=== PATIENT | male | born 1935 | race Caucasian/White ===

== ENCOUNTER → 2016-09-05 | Outpatient (CLI) | payer MEDICARE, OTHER | END | disposition home or self-care (01) | LOC: GMAL 10:08 | PROVIDERS: ATTEND Family Medicine | DX: Z12.5 Encounter for screening for malignant neoplasm of prostate (principal); D51.3 Other dietary vitamin B12 deficiency anemia | CPT/HCPCS: 82607; G0103 ==

== ENCOUNTER → 2016-09-21 | Outpatient (CLI) | payer MEDICARE, OTHER ==
--- NOTE | 2016-09-21 11:45 | US ---
EXAM DESCRIPTION: Carotid Duplex CLINICAL HISTORY: I65.22, I65.23 COMPARISON: None Available. TECHNIQUE: Carotid Doppler ultrasound was performed. Grayscale, color Doppler and spectral Doppler images were saved to the patient's medical record. Stenosis was calculated indirectly based on peak systolic velocity, end-diastolic velocity and ICA/CCA ratios. FINDINGS: There is minimal atherosclerotic calcified plaque within the right carotid bulb. No additional plaque noted. The right common carotid artery peak systolic velocity is 70 cm/s, the left is 85. The right internal carotid artery peak systolic velocity is 51 cm/s, the left is 55. No abnormal ratio. Bilateral vertebral arteries demonstrate antegrade flow. IMPRESSION: Today's exam demonstrates minimal atherosclerotic plaque within the right carotid bulb. There is no evidence of significant narrowing within either carotid systems. Electronically signed by: Bladimir Cisse MD 09/21/2016 11:45 AM CDT
== END | disposition home or self-care (01) ==
LOC: US 09:23
PROVIDERS: ATTEND Family Medicine
DX: I65.22 Occlusion and stenosis of left carotid artery (principal)

== ENCOUNTER 2017-02-21 22:08 | Emergency (ER) | payer MEDICARE, OTHER ==
[2017-02-21 22:15] VITALS: O2SAT 94
--- NOTE | 2017-02-21 22:34 | ED.PDOC ---
History of Present Illness - General Chief Complaint: GI Problem Stated Complaint: vomiting Time Seen by Provider: 02/21/17 22:25 Source: patient Exam Limitations: no limitations - History of Present Illness Initial Comments: Patient presents complaining of N/V x 4 hours. He has vomited about every 20 minutes. The vomitus is watery. Denies blood, coffee ground emesis, or bile. Denies abdominal pain. Denies diarrhea. S/P cholecystectomy. No similarly sick contacts. No other complaints. Timing/Duration: 4-6 hours Severity: moderate Improving Factors: nothing Worsening Factors: nothing Associated Symptoms: denies symptoms Allergies/Adverse Reactions: Allergies NO KNOWN ALLERGY Allergy (Verified 07/04/12 14:15) Home Medications: Ambulatory Orders Aspirin [Aspirin 81] 81 mg PO DAILY 10/15/13 Calcium Carbonate-Vitamin D [Calcium 500 + D 500-125 mg-Unit] 1 tab PO DAILY Cyanocobalamin [Vitamin B-12] 1,000 mcg PO DAILY 10/15/13 Gemfibrozil 600 mg PO DAILY 10/15/13 Levothyroxine Sodium 50 mcg PO DAILY 10/15/13 Multiple Vitamins W/ Minerals [Multi For Him] 1 cap PO DAILY 10/15/13 Pantoprazole Sodium 40 mg PO DAILY 10/15/13 Tyyeymxjpylzg-Jofa-Mnmxyhdeng [Fioricet] 1 ea PO Q8H PRN #21 tab 04/10/16 Review of Systems - Review of Systems EENTM: States: no symptoms reported Respiratory: States: no symptoms reported Cardiology: States: no symptoms reported Gastrointestinal/Abdominal: States: see HPI Genitourinary: States: no symptoms reported Musculoskeletal: States: no symptoms reported Skin: States: no symptoms reported Neurological: States: no symptoms reported Endocrine: States: no symptoms reported Hematologic/Lymphatic: States: no symptoms reported Past Medical History (General) - Patient Medical History Hx Cardiac Disorders: No Hx Congestive Heart Failure: No Hx Diabetes: No Hx Gastroesophageal Reflux: Yes Hx MRSA: No Surgical History: cholecystectomy - Vaccination History Hx Influenza Vaccination: Yes Hx Pneumococcal Vaccination: Yes Family Medical History - Family History Father Family History: Unknown Physical Exam - Physical Exam General Appearance: Alert Respiratory: chest non-tender, lungs clear, normal breath sounds Cardiovascular/Chest: normal peripheral pulses, regular rate, rhythm, no edema Gastrointestinal/Abdominal: normal bowel sounds, non tender, soft Skin Exam: normal color Progress - Progress Progress: 02/21/17 23:47 Zofran 4 mg IV x one significantly reduced the nausea. One liter NS IV bolus x one. CT ab/pelvis showed diverticulosis and possible mild colitis. Patient discharged with zofran and orders to increase oral fluids. Departure - Departure Clinical Impression: Gastroenteritis Disposition: Discharge to Home or Self Care Condition: Good Departure Forms: ED Discharge - Pt. Copy, Patient Portal Self Enrollment Diet: resume usual diet, other Activity: increase activity as tolerated Referrals: Vance Lim III, MD [Primary Care Provider] - 1-2 Weeks Home Medications: Ambulatory Orders Aspirin [Aspirin 81] 81 mg PO DAILY 10/15/13 Calcium Carbonate-Vitamin D [Calcium 500 + D 500-125 mg-Unit] 1 tab PO DAILY Cyanocobalamin [Vitamin B-12] 1,000 mcg PO DAILY 10/15/13 Gemfibrozil 600 mg PO DAILY 10/15/13 Levothyroxine Sodium 50 mcg PO DAILY 10/15/13 Multiple Vitamins W/ Minerals [Multi For Him] 1 cap PO DAILY 10/15/13 Pantoprazole Sodium 40 mg PO DAILY 10/15/13 Bcfsihlfgcceg-Vqsx-Iflmmacufr [Fioricet] 1 ea PO Q8H PRN #21 tab 04/10/16 Additional Instructions: Increase oral fluids. Return to the E.R. if nausea and vomiting persists more than 48 hours without the development of diarrhea.
[2017-02-21] MEDS ORDERED: ONDANSETRON INJ 4 MG/2 ML VIAL IV ONE (22:35)
[2017-02-21] MEDS ORDERED: SODIUM CHLORIDE 0.9% 1000ML 1,000 ML IVS ONE (22:37)
--- NOTE | 2017-02-21 23:30 | CT ---
EXAM DESCRIPTION: Abdomen/Pelvis w/Contrast CLINICAL HISTORY: 82 years Male N/V COMPARISON: None. TECHNIQUE: Contiguous axial images obtained through the abdomen and pelvis following IV contrast. Reformatted images obtained. This exam was performed according to our department optimization program which includes automated exposure control, adjustment of the mA and/or kv according to patient size and/or use of iterative reconstruction technique. FINDINGS: The liver appears unremarkable. The spleen and pancreas appear unremarkable. No adrenal masses. Prominent extrarenal pelvis on the right. No evidence of hydronephrosis or obstructive uropathy. The gallbladder is surgically absent. Infrarenal abdominal aorta is mildly dilated measuring 2.9 cm. Recommend follow-up every five years. Bowel obstruction. There is diverticulosis. Small amount of wall thickening suggested in the descending and the sigmoid colon which May reflect evolving colitis. The appendix is unremarkable. No free fluid. Prominent prostate with probable TUR defect. IMPRESSION: Diverticulosis Wall thickening in the sigmoid and distal descending colon which may reflect mild colitis Absent gallbladder 2.9 cm abdominal aortic aneurysm. Recommend follow-up every five years Electronically signed by: Ellyn Braden 02/21/2017 11:29 PM CDT
[2017-02-21] MEDS ORDERED: ONDANSETRON ODT (ER DISP) 8 MG TAB PO ONE (23:50)
[2017-02-22 00:38] VITALS: BP 101/55; TEMP 98.9
== END 2017-02-22 00:38 | disposition home or self-care (01) ==
LOC: ER 22:08
DX: K52.9 Noninfective gastroenteritis and colitis, unspecified (principal); K21.9 Gastro-esophageal reflux disease without esophagitis; Z79.82 Long term (current) use of aspirin; Z79.899 Other long term (current) drug therapy
CPT/HCPCS: 36415; 74177; 80053; 83690; 85025; J2405; J7030

== ENCOUNTER → 2017-03-21 | Outpatient (CLI) | payer MEDICARE, OTHER ==
--- NOTE | 2017-03-22 20:24 | MRI ---
Procedure: MR LUMBAR SPINE WITHOUT IV CONTRAST Exam Date: 03/21/2017 9:49 AM CDT Ordering Provider: MAYCOL TORO Clinical Indication: Low back pain with radiculopathy Comparison: None Technique: Multiplanar, multisequence MR images of the lumbar spine were obtained. Findings: No evidence of vertebral body compression deformity or acute fracture. Mild dextroconvex scoliotic curvature with apex at the L2-L3 level. Spinal cord terminates at the superior endplate of L1 and is normal in signal morphology. Cauda equina separate appropriately. T12-L1: Broad-based disc bulge with mild bilateral neural foraminal stenosis. Spinal canal is patent. L1-L2: Advanced left greater than right facet arthrosis with trace degenerative retrolisthesis. Broad-based disc bulge asymmetric to the left. No spinal canal stenosis yet there is moderate left neural foraminal stenosis. Right neural foramen is patent. L2-L3: Advanced facet and ligamentum flavum hypertrophy. Broad-based disc bulge with trace retrolisthesis. Mild spinal canal stenosis. There is moderate left greater than right neural foraminal stenosis. L3-L4: Facet arthrosis with broad-based disc bulge. Ligamentum flavum buckling is also present. There is mild bilateral neural foraminal stenosis. No spinal canal stenosis. L4-L5: Advanced right greater than left facet arthrosis with ligamentum flavum hypertrophy. Broad-based disc osteophyte complex. No spinal canal stenosis yet there is mild bilateral neural foraminal stenosis. L5-S1: Circumferential disc bulge with bilateral foraminal components. Moderate left greater than right neural foraminal stenosis. No spinal canal stenosis. No focal disc protrusion. Prevertebral and paravertebral soft tissues are unremarkable. Impression: Lumbar spondylosis and scoliotic curvature with foraminal stenoses as outlined above. No high-grade spinal canal stenosis. Electronically signed by: Pacheco Christiansen MD 03/22/2017 8:23 PM CDT
== END | disposition home or self-care (01) ==
LOC: MRI 12:55
DX: M54.16 Radiculopathy, lumbar region (principal)

== ENCOUNTER → 2018-06-14 | Outpatient (CLI) | payer MEDICARE | LOC: GMAL 16:44 | PROVIDERS: ATTEND Family Medicine | DX: E53.8 Deficiency of other specified B group vitamins (principal); E55.9 Vitamin D deficiency, unspecified ==

== ENCOUNTER → 2018-06-20 | Outpatient (CLI) | payer MEDICARE, OTHER ==
--- NOTE | 2018-06-20 14:07 | MRI ---
EXAM DESCRIPTION: MRA Head and/or Neck CLINICAL HISTORY: 83 years Male, SYCOPE HEAD COMPARISON: None. FINDINGS: Mild to moderate atherosclerotic disease is noted in the cavernous portions of internal carotid arteries. The bilateral anterior and middle cerebral arteries demonstrate good flow related signal with no significant stenosis or occlusion. The basilar artery and bilateral posterior cerebral arteries also demonstrated normal flow related signal. IMPRESSION: Mild to moderate atherosclerotic disease is noted in the cavernous portions of internal carotid arteries. Otherwise normal MR angiogram of the upper [place]. Electronically signed by: Lan Valentino MD 06/20/2018 2:06 PM [facility]
--- NOTE | 2018-06-20 14:10 | MRI ---
EXAM DESCRIPTION: MRA Head and/or Neck CLINICAL HISTORY: 83 years Male, SYNCOPE NECK COMPARISON: None. FINDINGS: Slightly limited study due to motion artifact. Bilateral common carotid arteries appear normal. Atherosclerotic disease is noted in the proximal portions of the bilateral proximal internal carotid arteries. The mid and distal portions appear grossly unremarkable. Dominant left vertebral artery is noted. No significant stenosis or occlusion is identified in the vertebral arteries. IMPRESSION: Atherosclerotic disease is noted in the proximal portions of the bilateral proximal internal carotid arteries. Electronically signed by: Lan Valentino MD 06/20/2018 2:08 PM [facility]
== END ==
LOC: MRI 11:00
PROVIDERS: ATTEND Family Medicine
DX: R55 Syncope and collapse (principal); I65.23 Occlusion and stenosis of bilateral carotid arteries

== ENCOUNTER → 2018-12-26 | Outpatient (CLI) | payer MEDICARE, OTHER ==
--- NOTE | 2018-12-26 10:31 | US ---
EXAM DESCRIPTION: Bladder: Ultrasound. CLINICAL HISTORY: 83 years Male URINARY INCONTINENCE COMPARISON: None. TECHNIQUE: Transcutaneous scanning: Two-dimensional and Doppler modes. FINDINGS: Urinary bladder was visualized. Prevoid volume 7.2 x 5.8 x 5.5 cm:119.2 mL. Ureteral jet in the bladder not seen by color Doppler. Postvoid volume 6.7 x 5.5 x 4.8 cm: 93.7 mL. Micturition volume 25.5 mL. Abdominal aorta: not measured.. No free fluid in the pelvis. IMPRESSION: 1. Micturition volume 25.5 mL, indicating partial bladder outlet obstruction or neurogenic bladder. Ureteral jets were not seen in the bladder by color Doppler. No free fluid in the pelvis. Electronically signed by: Mohsen Bland MD 12/26/2018 10:27 AM CDT
== END ==
LOC: US 09:00
PROVIDERS: ATTEND Family Medicine
DX: N39.498 Other specified urinary incontinence (principal)

== ENCOUNTER → 2020-01-14 | Outpatient (CLI) | payer MEDICARE, OTHER ==
--- NOTE | 2020-01-14 16:08 | MRI ---
EXAM DESCRIPTION: Brain w/oContrast CLINICAL HISTORY: 84 years Male, UNSTEADINESS ON FEET COMPARISON: MRA head and neck 06/20/2018. MRI brain 07/26/2013. TECHNIQUE: Multisequence, multiplanar images of the brain obtained without intravenous contrast. FINDINGS: Brain Parenchyma, Ventricles, Meninges: No restricted diffusion. No acute intracranial hemorrhage. Moderate generalized atrophy. Tiny chronic infarctions in the right periventricular frontal lobe and left pearce radiata. Scattered T2 and FLAIR white matter hyperintensities elsewhere in the superior hemispheres probably related to chronic seen small vessel disease. No abnormal extra-axial fluid collection. Vascular Structures: Normal flow voids for the major intracranial arteries and dural venous sinuses. Calvarium, paranasal sinuses, mastoids, and orbits: No abnormal calvarial or skull base marrow signal changes. Moderate mucosal thickening left sphenoid sinus. Remaining paranasal sinuses and mastoids are clear. Grossly unremarkable orbits. IMPRESSION: 1. No acute intracranial abnormality. 2. Senescent changes. 3. Tiny chronic lacunar infarctions in the frontal lobes. 4. Moderate left sphenoid sinus disease. Electronically signed by: Thom Mendoza MD 01/14/2020 4:06 PM CDT
== END ==
LOC: MRI 13:00
PROVIDERS: ATTEND Family Medicine
DX: R41.81 Age-related cognitive decline (principal); I63.9 Cerebral infarction, unspecified; J32.3 Chronic sphenoidal sinusitis

== ENCOUNTER → 2020-04-27 | Outpatient (CLI) | payer MEDICARE, OTHER | LOC: GMAL 10:40 | PROVIDERS: ATTEND Family Medicine | DX: D51.3 Other dietary vitamin B12 deficiency anemia (principal); E55.9 Vitamin D deficiency, unspecified; N40.1 Benign prostatic hyperplasia with lower urinary tract symptoms; E03.9 Hypothyroidism, unspecified ==

== ENCOUNTER → 2020-08-26 | Outpatient (CLI) | payer MEDICARE, OTHER | LOC: GMAL 16:27 | PROVIDERS: ATTEND Family Medicine | DX: N10 Acute pyelonephritis (principal) ==